=== PATIENT | female | born 1970 | race Asian ===

== ENCOUNTER 2017-03-28 17:05 | Emergency (ER) | payer BC, MEDICAID ==
[~2017-03-28] VITALS: Ht 157.5 cm; Wt 78.5 kg
[2017-03-28 17:08] VITALS: Ht 157.5 cm; Wt 78.5 kg
[2017-03-28] MEDS ORDERED: CEPHALEXIN 500 MG CAP PO ONE (18:30)
[2017-03-28] MEDS ORDERED: DIPHTH/TET/ACEL PERTUSS (ADULT) 0.5 ML VIAL IM* ONE (18:30)
[2017-03-28] MEDS ORDERED: TRIMETHOPRIM/SULFAMETHOX (DS) TAB PO ONE (18:30)
--- NOTE | 2017-03-28 19:56 | RADRPT ---
PROCEDURE: XR Hand. CLINICAL INDICATION: Swelling of left middle finger TECHNIQUE: PA, oblique and lateral views of the left hand were obtained. COMPARISON: None available. FINDINGS: Mineralization is within normal limits. No fracture or osseous lesion is identified. Joint spaces are preserved. Diffuse nonspecific soft tissue swelling of the middle finger is present. There is no evidence of subcutaneous gas. No radiopaque foreign body is present. RPTAT:HJJR IMPRESSION: Diffuse middle finger soft tissue swelling without associated osseous abnormality involving the left hand. Physician Jean-Pierre Date Time Electronically viewed and signed by Physician Jean-Pierre on 03/28/2017 19:56 /
--- NOTE | 2017-03-28 19:57 | RADRPT ---
PROCEDURE: XR left ankle. CLINICAL INDICATION: Lateral left ankle pain TECHNIQUE: AP , oblique and lateral views of theleft ankle were performed. COMPARISON: None. FINDINGS: There is normal mineralization and alignment. No fracture or osseous lesion is identified. The ankle mortis and talar dome are intact. Diffuse nonspecific soft tissue swelling is present. There is no evidence for a radiopaque foreign body. RPTAT:HJJR IMPRESSION: Diffuse soft tissue swelling without associated osseous abnormality involving the left ankle. Physician Jean-Pierre Date Time Electronically viewed and signed by Physician Jean-Pierre on 03/28/2017 19:57 /
[2017-03-28] MEDS ORDERED: IBUP-1542 PO (20:35)
[2017-03-28] MEDS ORDERED: CEPH-443 PO (20:36)
[2017-03-28] MEDS ORDERED: SULF1TAB31 PO (20:36)
[2017-03-28 20:48] VITALS: BP 177/95; PULSE 78; RESP 22; TEMP 98.2
--- NOTE | 2017-03-28 20:49 | ERD ---
ER Documentation Chief Complaint Date/Time DATE: 03/28/17 TIME: 20:39 Chief Complaint left hand middle finger possible cellulitis and left foot swelling HPI Patient is a 46-year-old female past medical history of hypertension who presents to the emergency department with left middle finger swelling and left ankle swelling. Patient states 1 week ago, she was poked by wooden skewer. Patient states that she initially had a slight area of erythema however the redness is now increasing. Patient does report swelling. Patient denies any warmth, bleeding or discharge from the affected site. Patient denies any fevers or chills. Patient does not recall her last tetanus vaccination. Patient also reports left ankle swelling 2 weeks. Patient states on mother states she twisted her ankle while walking on the concrete and since that time she has had ongoing swelling. Patient is able to ambulate on the affected extremity. Patient denies any previous injuries to the affected extremity. Patient denies any chest pain, shortness of breath, headache, blurry vision, nausea, vomiting or loss of consciousness. ROS All systems reviewed and are negative except as per history of present illness. Medications Home Meds Active Scripts Cephalexin* (Keflex*) 500 Mg Capsule, 500 MG PO QID for 10 Days, CAP Prov:CON WHEELER-Hoda 03/28/17 Sulfamethoxazole/Trimethoprim* (Bactrim Ds* Tablet) 1 Each Tablet, 1 TAB PO BID , #20 TAB Prov:CON WHEELER-Hoda 03/28/17 Ibuprofen* (Motrin*) 600 Mg Tab, 600 MG PO Q6, #30 TAB Prov:CON WHEELER-Hoda 03/28/17 Allergies Allergies: Coded Allergies: No Known Allergy (Verified , 03/28/17) PMhx/Soc Medical and Surgical Hx: pt denies Surgical Hx History of Surgery: No Anesthesia Reaction: No Hx Neurological Disorder: No Hx Respiratory Disorders: No Hx Cardiac Disorders: Yes (hypertension) Hx Psychiatric Problems: No Hx Miscellaneous Medical Probl: No Hx Alcohol Use: No Hx Substance Use: No Hx Tobacco Use: No Smoking Status: Never smoker FmHx Family History: No diabetes Physical Exam Vitals Vital Signs Date Time Temp Pulse Resp B/P Pulse Ox O2 Delivery O2 Flow Rate FiO2 03/28/17 20:48 98.2 78 22 177/95 97 Room Air 03/28/17 17:08 98.7 92 91 177/94 97 Physical Exam GENERAL: Well-developed, well-nourished female. Appears in no acute distress. HEAD: Normocephalic, atraumatic. EYES: Pupils are equally reactive bilaterally. EOMs grossly intact. No conjunctival erythema. ENT: Moist mucous membranes. No uvula deviation. No kissing tonsils. NECK: Supple. No meningismus. Normal range of motion of the neck. LUNG: Clear to auscultation bilaterally. No rhonchi, wheezing, rales or coarse breath sounds. HEART: Regular rate and rhythm. No murmurs, rubs or gallops. BACK: No midline tenderness. EXTREMITIES: Equal pulses bilaterally. No peripheral clubbing, cyanosis or edema. No unilateral leg swelling. NEUROLOGIC: Alert and oriented. Moving all four extremities without any difficulty. Normal speech. Steady gait. SKIN: Normal color. Warm and dry. No rashes or lesions. LEFT HAND: Third digit erythematous and swollen on the distal aspect. No warmth. Puncture wound noted on the volar aspect of the patient's third digit. No lymphatic streaking. Patient is able to bend digit without any difficulty. No fluctuance noted. LEFT ANKLE: No deformity, erythema, ecchymosis. Swelling noted on the lateral aspect of the ankle. Skin intact. Decreased range of motion secondary swelling. Tender to palpation of the tibia-fibula, knee normal range of motion of the knee. Normal range of motion of all toes.. Sensation intact to light touch. Neurovascularly intact. (Able to plantarflex, dorsiflex, ingrid foot, invert foot, raise big toe.) 2+ DP and DT pulses. Results 24 hrs Current Medications Medications (Trade) Dose Ordered Sig/Mayela Route PRN Reason Start Time Stop Time Status Last Admin Dose Admin Diphtheria/ Tetanus/Acell Pertussis (Adacel) 0.5 ml ONCE ONCE IM* 03/28/17 18:30 03/28/17 18:31 DC 03/28/17 18:39 Trimethoprim/ Sulfamethoxazole (Bactrim (Ds)) 1 tab ONCE ONCE PO 03/28/17 18:30 03/28/17 18:31 DC 03/28/17 18:38 Cephalexin (Keflex) 500 mg ONCE ONCE PO 03/28/17 18:30 03/28/17 18:31 DC 03/28/17 18:38 Procedures/MDM ED COURSE: The patient was stable throughout ED course. I kept the patient and/or family informed of laboratory and diagnostic imaging results throughout the ED course. DIAGNOSTIC IMAGING: Read by radiologist. DIAGNOSTIC IMAGING REPORT Patient: RITO KHAN : 1970 Age: 46 Sex: F MR #: [id number] DOS: 03/28/171823 Ordering MD: CON WHEELER PA-C Location: [facility] Room/Bed: PROCEDURE: XR left ankle. CLINICAL INDICATION: Lateral left ankle pain TECHNIQUE: AP , oblique and lateral views of theleft ankle were performed. COMPARISON: None. FINDINGS: There is normal mineralization and alignment. No fracture or osseous lesion is identified. The ankle mortis and talar dome are intact. Diffuse nonspecific soft tissue swelling is present. There is no evidence for a radiopaque foreign body. RPTAT:HJJR IMPRESSION: Diffuse soft tissue swelling without associated osseous abnormality involving the left ankle. Physician Jean-Pierre Date Time Electronically viewed and signed by Physician Jean-Pierre on 03/28/2017 19:57 JR/ CC: CON WHEELER PA-C DIAGNOSTIC IMAGING REPORT Patient: RITO KHAN : 1970 Age: 46 Sex: F MR #: [id number] DOS: 03/28/171823 Ordering MD: CON WHEELER PA-C Location: [facility] Room/Bed: PROCEDURE: XR Hand. CLINICAL INDICATION: Swelling of left middle finger TECHNIQUE: PA, oblique and lateral views of the left hand were obtained. COMPARISON: None available. FINDINGS: Mineralization is within normal limits. No fracture or osseous lesion is identified. Joint spaces are preserved. Diffuse nonspecific soft tissue swelling of the middle finger is present. There is no evidence of subcutaneous gas. No radiopaque foreign body is present. RPTAT:HJJR IMPRESSION: Diffuse middle finger soft tissue swelling without associated osseous abnormality involving the left hand. Physician Jean-Pierre Date Time Electronically viewed and signed by Physician Jean-Pierre on 03/28/2017 19:56 JR/ CC: CON WHEELER PA-C MEDICATIONS GIVEN: Bactrim, Keflex Patient tolerated medication well with no adverse reactions. MEDICAL DECISION MAKING: Patient is a 46-year-old female who presents with left third digit redness and swelling after poking her finger with wooden skewer 1 week ago. Patient also reports left ankle pain and swelling after twisting her ankle approximately 2 weeks ago.. Vital signs were reviewed. Patient is afebrile. Patient was not hypoxic. Patient's left third digit was cleansed here in the emergency department. Patient's digit was marked, timed and dated. Patient was also given her first dose of Keflex and Bactrim for concerns of cellulitis. Patient was also given a tetanus vaccination here in the ED. X-ray imaging of the left hand was unremarkable. X-ray imaging of the left ankle was unremarkable. At this time, patient's presentation is most consistent with cellulitis and left ankle sprain. Low suspicion for abscess, flexor tenosynovitis, paronychia, phalanx fracture, dislocation at this time. Low suspicion for ankle dislocation , tibia fracture, fibula fracture, osteomyelitis, gout, compartment syndrome. Unable to rule out any ligament or tendon injuries at this time. Patient was advised to follow-up with an emergency medicine specialist and/or obtain MRI imaging on an outpatient basis for any persistent pain or swelling. PRESCRIPTION: Keflex, Bactrim, ibuprofen DISCHARGE: At this time, patient is stable for discharge and outpatient management. Patient was provided with a copy of all imaging studies obtained today. Patient was advised to return the ED in 2 days for wound recheck. Patient advised to return sooner for any worsening redness, swelling, warmth, fevers or chills. I have instructed the patient to follow-up with his/her primary care physician in 1-2 days. I have discussed with the patient the possibility of needing to see a specialist for further workup and imaging studies if symptoms persist. I have instructed the patient to promptly return to the ER for any new or worsening symptoms including increased pain, fever, nausea, vomiting, weakness or LOC. The patient and/or family expressed understanding of and agreement with this plan. All questions were answered. Home care instructions were provided. Patient's blood pressure was elevated (>120/80) but appears stable without evidence of hypertensive emergency, hypertensive urgency or end-organ failure. I had discussion with the patient about the risks of hypertension. I have advised the patient to follow up with his/her primary care physician for outpatient monitoring and treatment for hypertension in 2-3 days. I have instructed the patient to return to the ER for any new or worsening symptoms including chest pain, shortness of breath, headache, blurred vision, confusion, nausea, vomiting or LOC. Departure Diagnosis: Primary Impression: Cellulitis Site of cellulitis: unspecified site Qualified Code: L03.90 - Cellulitis, unspecified cellulitis site Additional Impression: Left ankle pain Chronicity: acute Qualified Code: M25.572 - Acute left ankle pain Condition: Stable Patient Instructions: Cellulitis, Sprain, Ankle, With X-Ray Referrals: [facility] YOU HAVE RECEIVED A MEDICAL SCREENING EXAM AND THE RESULTS INDICATE THAT YOU DO NOT HAVE A CONDITION THAT REQUIRES URGENT TREATMENT IN THE EMERGENCY DEPARTMENT. FURTHER EVALUATION AND TREATMENT OF YOUR CONDITION CAN WAIT UNTIL YOU ARE SEEN IN YOUR DOCTORS OFFICE WITHIN THE NEXT 1-2 DAYS. IT IS YOUR RESPONSIBILITY TO MAKE AN APPOINTMENT FOR FOLOW-UP CARE. IF YOU HAVE A PRIMARY DOCTOR --you should call your primary doctor and schedule an appointment IF YOU DO NOT HAVE A PRIMARY DOCTOR YOU CAN CALL OUR PHYSICIAN REFERRAL HOTLINE AT IF YOU CAN NOT AFFORD TO SEE A PHYSICIAN YOU CAN CHOSE FROM THE FOLLOWING [facility] [address] [facility] [address] [facility]. [facility] [address] [facility] [address] [facility] [address] [facility]. [facility] [address] [facility]. [facility] YOU HAVE RECEIVED A MEDICAL SCREENING EXAM AND THE RESULTS INDICATE THAT YOU DO NOT HAVE A CONDITION THAT REQUIRES URGENT TREATMENT IN THE EMERGENCY DEPARTMENT. FURTHER EVALUATION AND TREATMENT OF YOUR CONDITION CAN WAIT UNTIL YOU ARE SEEN IN YOUR DOCTORS OFFICE WITHIN THE NEXT 1-2 DAYS. IT IS YOUR RESPONSIBILITY TO MAKE AN APPOINTMENT FOR FOLOW-UP CARE. IF YOU HAVE A PRIMARY DOCTOR --you should call your primary doctor and schedule and appointment IF YOU DO NOT HAVE A PRIMARY DOCTOR YOU CAN CALL OUR PHYSICIAN REFERRAL HOTLINE AT . IF YOU CAN NOT AFFORD TO SEE A PHYSICIAN YOU CAN CHOSE FROM THE FOLLOWING [facility] INSTITUTIONS: [facility] [address] [place] [address] [facility] [address] [place] [address] [facility] [address] [place] [address] [facility] Hours: Mon-Fri 9:00 AM - 5:00 PM Additional Instructions: Return to the ED in 2 days for wound recheck. Return sooner for any worsening symptoms including but not limited to severe redness, swelling, warmth, discharge or fever or chills. Ice affected extremity. Elevate extremity. Take Motrin as needed for pain. Call your primary care doctor TOMORROW for an appointment during the next 1-2 days.See the doctor sooner or return here if your condition worsens before your appointment time. Unable to rule out any ligament or tendon injuries at this time. Patient advised to follow-up with an emergency medicine specialist and/or obtain MRI imaging on an outpatient basis. CON WHEELER PA-C Mar 28, 2017 20:49
== END 2017-03-28 20:50 | disposition home or self-care (01) ==
LOC: FTE 17:05
DX: L03.012 Cellulitis of left finger (principal); M25.572 Pain in left ankle and joints of left foot; I10 Essential (primary) hypertension; Z23 Encounter for immunization
CPT/HCPCS: 73130; 73610; 90471; 90715; Z7502; Z7610

== ENCOUNTER 2017-03-31 09:55 | Emergency (ER) | payer BC ==
[~2017-03-31] VITALS: Ht 160 cm; Wt 74.0 kg
[~2017-03-31 09:55] MED LIST: CEPH-443 PO; IBUP-1542 PO; SULF1TAB31 PO
[2017-03-31 10:24] VITALS: Ht 160 cm; Wt 74.0 kg
--- NOTE | 2017-03-31 11:35 | ERD ---
ER Documentation Chief Complaint Date/Time DATE: 03/31/17 TIME: 11:35 Chief Complaint RECHECK OF LEFT ANKLE AND LEFT 3RD FINGER INJURY HPI This is a 46-year-old female presenting to the emergency department for a recheck of cellulitis of the left third digit and left ankle from a wooden skewer 1 week ago. Patient states that she is compliant with taking Keflex and Bactrim for the past 3 days. She states that there is significant improvement. Patient denies any restricted range of motion. She states the redness and swelling has improved. ROS All systems reviewed and are negative except as per history of present illness. Medications Home Meds Active Scripts Cephalexin* (Keflex*) 500 Mg Capsule, 500 MG PO QID for 10 Days, CAP Prov:CON WHEELER-Hoda 03/28/17 Sulfamethoxazole/Trimethoprim* (Bactrim Ds* Tablet) 1 Each Tablet, 1 TAB PO BID , #20 TAB Prov:CON WHEELER-C 03/28/17 Ibuprofen* (Motrin*) 600 Mg Tab, 600 MG PO Q6, #30 TAB Prov:CON WHEELER-C 03/28/17 Allergies Allergies: Coded Allergies: No Known Allergy (Verified , 03/28/17) PMhx/Soc History of Surgery: No Anesthesia Reaction: No Hx Neurological Disorder: No Hx Respiratory Disorders: No Hx Cardiac Disorders: Yes (hypertension) Hx Psychiatric Problems: No Hx Miscellaneous Medical Probl: No Hx Alcohol Use: No Hx Substance Use: No Hx Tobacco Use: No Physical Exam Vitals Vital Signs Date Time Temp Pulse Resp B/P Pulse Ox O2 Delivery O2 Flow Rate FiO2 03/31/17 10:24 97.4 76 20 165/90 98 Physical Exam General: WD/WN, in no apparent distress, non-toxic appearing HENT: NC/AT Eyes: Conjunctiva normal Neck: Supple Pulm: Clear to auscultation, normal labored breathing; no wheezing/rales/ rhonchi heard CV: Good capillary refill GI: Non-distended, no guarding Back: No masses Ext: No clubbing, cyanosis, or edema Neuro: Moves on all fours Skin: Mild violaceous color of the left third digit, full range of motion, no swelling no erythema or swelling of the left ankle Normal turgor, color, and temperature. No ulcerations or rashes noted. Psych: Normal mood Procedures/MDM This is a 46-year-old female presenting to the emergency department for a evaluation of cellulitis on her left ankle and left third digit that has been treated since 3 days ago with Keflex and Bactrim. Patient appears to be doing a lot better she is compliant with her medications. There was no evidence of lymphangitis, flexor tenosynovitis, worsening cellulitis. I discussed with patient to continue her antibiotics and to follow-up with her primary care physician. Discussed return to this facility if it is not improving as expected or if it has worsened. She understands and agrees with this plan Departure Diagnosis: Primary Impression: Encounter for wound re-check Condition: Stable Patient Instructions: Cellulitis Referrals: DOCTOR,NOT ON STAFF Additional Instructions: FOLLOW UP WITH YOUR PRIMARY CARE PHYSICIAN TOMORROW.Return to this facility if you are not improving as expected. Take all medicines as directed. Return to this facility if you are not improving as expected. NIYAH DOOLEY PA-C Mar 31, 2017 11:35
== END 2017-03-31 10:53 | disposition home or self-care (01) ==
LOC: FTE 09:55
DX: Z48.01 Encounter for change or removal of surgical wound dressing (principal); I10 Essential (primary) hypertension
CPT/HCPCS: 99281